=== PATIENT | male | born 1970 | race Caucasian/White ===

== ENCOUNTER 2016-11-13 14:11 | Inpatient (IN) | payer BC ==
[~2016-11-13] VITALS: Ht 182.9 cm; Wt 136.1 kg
[~2016-11-13 14:11] MED LIST: ALBU8.5H2 INH; ATOR20TA PO; BUDE10.2 INH; CODE118S2 PO; LEVO500T90 PO; MONT10TA25 PO; OMEP20TA20 PO; PRED2.5T PO; PRED20TA PO; SILD100T PO
[2016-11-13] MEDS ORDERED: LISI1TAB13 PO (14:43)
--- NOTE | 2016-11-13 15:15 | NUR ---
Patient is resting comfortably in bed with eyes closed, sleeping but easily arousable. Patient has obstructive sleep apnea and spo2 decreases to 77%@room air and spontaneously goes up to 97% room air during his sleep - Dr Hillman notified. Maintained on continuous cardiac, BP & spo2 monitors w/alarms set, on & audible.
[2016-11-13 15:29] LABS: CALCIUM 8.9 mg/dL (8.5-10.1); CREATININE 1.3 mg/dL (0.6-1.3); POTASSIUM 3.9 mmol/L (3.5-5.1)
[2016-11-13 15:41] LABS: ALBUMIN 3.5 g/dL (3.4-5.0); BILIRUBIN,DIRECT 0.1 mg/dL (0.0-0.2); BILIRUBIN,TOTAL 0.4 mg/dL (0.2-1.0); TOTAL PROTEIN, SERUM 6.7 g/dL (6.4-8.2)
[2016-11-13 15:43] LABS: BASOPHILS # (AUTO) 0.1 K/uL (0.0-0.2); BASOPHILS % (AUTO) 0.5 % (0.0-2.0); EOSINOPHILS # (AUTO) 1.2 K/uL (0.0-0.7); EOSINOPHILS % (AUTO) 6.8 % (0.0-7.0); HEMATOCRIT 40.4 % (40.0-50.0); HEMOGLOBIN 13.5 g/dL (14.0-18.0); LYMPHOCYTES # (AUTO) 3.1 K/uL (0.8-4.8); LYMPHOCYTES % (AUTO) 18.2 % (20.5-51.5); MEAN CORPUSCULAR HEMOGLOBIN 29.6 uug (27.0-31.0); MEAN CORPUSCULAR HGB CONC 34 g/dL (32.0-37.0); MEAN CORPUSCULAR VOLUME 88.4 fL (82.0-92.0); MONOCYTES # (AUTO) 1.7 K/uL (0.1-1.30); MONOCYTES % (AUTO) 9.7 % (0.0-11.0); NEUTROPHILS # (AUTO) 10.9 K/uL (1.8-8.9); NEUTROPHILS % (AUTO) 64.8 % (38.5-71.5); PLATELET COUNT (AUTO) 364 K/uL (150-450); RED BLOOD CELL COUNT(AUTO) 4.57 MIL/uL (4.70-6.10); RED CELL DISTRIBUTION WIDTH 14.7 % (11.5-14.5)
[2016-11-13 16:54] LABS: ETHANOL < 3 MG/DL (0-0)
--- NOTE | 2016-11-13 17:13 | NUR ---
still for urine specimen, endorsed to 2nd floor nurse Yaly accordingly. "OK to go to floor from CT scan." per Dr Hillman.
[2016-11-13] MEDS ORDERED: ONDANSETRON 4 MG/2 ML VIAL IV PRN (17:15)
[2016-11-13] MEDS ORDERED: ACETAMINOPHEN 325 MG TABLET PO PRN (17:15)
[2016-11-13] MEDS ORDERED: DEXTROSE 50% 50 ML DISP.SYRIN IV PRN (17:30)
--- NOTE | 2016-11-13 17:30 | NUR ---
ADMITTED FROM HOME VIA ER A 46 YO MALE WITH ADM DX OF SYNCOPE. ALERT AND ORIENTED X3, SLIGHT SOB ON EXERTION SATURATING 90% ON RA. STARTED O2 NC AT 2L SATURATING 98%. ROUTINE ADMISSION ASSESSMENT INITIATED. SEEN BY DR FLANAGAN WITH ORDERS
[2016-11-13] MEDS: IV 1/2NS 1000 ML 1,000 ML IV PRN (18:09)
[2016-11-13 18:47] VITALS: BP 147/105
[2016-11-13] MEDS: HYDROCODONE/APAP 5-325MG TABLET PO PRN (19:42)
[2016-11-13] MEDS: ATORVASTATIN 20 MG TABLET PO SCH (19:44)
[2016-11-13] MEDS: BLOOD SUGAR DIAGNOSTIC 1 EACH STRIP VI SCH (19:57)
--- NOTE | 2016-11-13 20:30 | NUR ---
Received this patient awake in bed, exertional SOB noted. Anxious c/o lower back pain. BP elevated. Sinus tachy on the monitor. [place] 1 tab po was given & monitored.
[2016-11-13 23:11] VITALS: BP 138/90
[2016-11-14] VITALS (7 sets, daily range): BP systolic 120–160; BP diastolic 74–103
[2016-11-14] MEDS: HYDROCODONE/APAP 5-325MG TABLET PO PRN ×3 (00:09→10:21)
[2016-11-14] MEDS ORDERED: LORAZEPAM 2 MG/1 ML VIAL IV PRN (00:30)
--- NOTE | 2016-11-14 00:30 | NUR ---
Patient still awake & anxious. C/o back discomfort. BP is higher this time w/ HR 116. Called Epic for orders. Received orders & carried. Ativan 1mg IVP adm. [place] 1tab po provided for pain & monitored.
[2016-11-14] MEDS ORDERED: CLONIDINE HCL 0.2 MG TABLET PO PRN (01:45)
[2016-11-14] MEDS ORDERED: CLONIDINE HCL 0.2 MG TABLET ONE (01:58)
--- NOTE | 2016-11-14 02:00 | NUR ---
Patient sleeping but BP remains high 160/92. Sinus tach [address] Henao notified. Clonidine 0.2 mg po adm.
[2016-11-14] MEDS: IV 1/2NS 1000 ML 1,000 ML IV PRN (06:25)
[2016-11-14] MEDS: PANTOPRAZOLE SODIUM 40 MG TABLET.DR PO SCH (06:36)
[2016-11-14] MEDS: BLOOD SUGAR DIAGNOSTIC 1 EACH STRIP VI SCH ×4 (06:36→20:43)
[2016-11-14 07:45] LABS: BASOPHILS % (AUTO) 0.2 % (0.0-2.0); EOSINOPHILS % (AUTO) 7.3 % (0.0-7.0); HEMOGLOBIN 13.6 g/dL (14.0-18.0); LYMPHOCYTES # (AUTO) 2.4 K/uL (0.8-4.8); LYMPHOCYTES % (AUTO) 16.5 % (20.5-51.5); MEAN CORPUSCULAR HEMOGLOBIN 30.1 uug (27.0-31.0); MEAN CORPUSCULAR HGB CONC 34 g/dL (32.0-37.0); MEAN CORPUSCULAR VOLUME 88.4 fL (82.0-92.0); MONOCYTES # (AUTO) 1.3 K/uL (0.1-1.30); MONOCYTES % (AUTO) 9.2 % (0.0-11.0); NEUTROPHILS # (AUTO) 9.6 K/uL (1.8-8.9); NEUTROPHILS % (AUTO) 66.8 % (38.5-71.5); PLATELET COUNT (AUTO) 364 K/uL (150-450); RED BLOOD CELL COUNT(AUTO) 4.53 MIL/uL (4.70-6.10); RED CELL DISTRIBUTION WIDTH 14.6 % (11.5-14.5); WHITE BLOOD COUNT (AUTO) 14.3 K/uL (4.0-11.2)
[2016-11-14 07:59] LABS: ALBUMIN 3.3 g/dL (3.4-5.0); BILIRUBIN,TOTAL 0.6 mg/dL (0.2-1.0); CALCIUM 8.5 mg/dL (8.5-10.1); POTASSIUM 3.7 mmol/L (3.5-5.1); TOTAL PROTEIN, SERUM 6.6 g/dL (6.4-8.2)
--- NOTE | 2016-11-14 08:00 | NUR ---
IN BED SLEEPING SLIGHTLY SHORT OF BREATH O2 SAT 90% RA
[2016-11-14 08:11] LABS: CREATININE 1.4 mg/dL (0.6-1.3)
[2016-11-14] MEDS ORDERED: HYDROCHLOROTHIAZIDE 25 MG TABLET PO SCH (09:00)
[2016-11-14] MEDS ORDERED: HCTZ PO SCH (09:00)
[2016-11-14] MEDS ORDERED: LISINOPRIL PO SCH (09:00)
[2016-11-14] MEDS ORDERED: LISINOPRIL 20 MG TABLET PO SCH (09:00)
[2016-11-14] MEDS ORDERED: POTASSIUM CHLORIDE 20 MEQ TAB.PRT.SR PO ONE (09:15)
[2016-11-14] MEDS: INSULIN REGULAR, HUMAN 300 UNIT/3 ML VIAL SQ PRN ×2 (11:38→20:44)
--- NOTE | 2016-11-14 12:00 | NUR ---
NO SIGNS OF PAIN UP AND ABOUT IN ROOM
--- NOTE | 2016-11-14 14:32 | NUR ---
SLEEPING ON AND OFF NO SIGNS OF DISTRESS ST ON MONITOR 110/MIN
--- NOTE | 2016-11-14 15:14 | NUR ---
seen by dr trevizo see notes
[2016-11-14] MEDS ORDERED: ALBUTEROL SULFATE 2.5 MG/3 ML NEBU NEB PRN (16:00)
--- NOTE | 2016-11-14 20:00 | NUR ---
RECEIVED PATIENT AWAKE IN BED. A/O X4. C/O PAIN IN LOWER BACK 04/10. VSS. [place] INTACT AND PATENT. NO RESP. DISTRESS NOTED. ON TELE ST 105-110. CALL LIGHT IN REACH. ALL NEEDS ATTENDED. WILL CONTINUE TO MONITOR.
[2016-11-14] MEDS: HYDROMORPHONE 1 MG/1 ML DISP.SYRIN IV PRN ×2 (20:01→20:17)
--- NOTE | 2016-11-14 20:15 | NUR ---
PATIENT GIVEN DILAUDID 1MG IV PER UTILITY ASSEMBLER.
[2016-11-14] MEDS: AMLODIPINE 5 MG TABLET PO SCH (20:49)
[2016-11-14] MEDS: ATORVASTATIN 20 MG TABLET PO SCH (20:49)
[2016-11-15 00:06] VITALS: BP 115/83
[2016-11-15] MEDS: HYDROMORPHONE 1 MG/1 ML DISP.SYRIN IV PRN ×5 (00:48→20:30)
[2016-11-15 04:00] VITALS: BP 121/86
[2016-11-15] MEDS: PANTOPRAZOLE SODIUM 40 MG TABLET.DR PO SCH (06:04)
--- NOTE | 2016-11-15 06:10 | NUR ---
PATIENT DOZING ON AND OFF IN BED. EASILY AROUSABLE. DENIES PAIN OR DISCOMFORT. NO RESP. DISTRESS NOTED. SLEPT WELL. VSS. CALL LIGHT IN REACH. ALL NEEDS ATTENDED. WILL CONTINUE TO MONITOR.
[2016-11-15] MEDS: BLOOD SUGAR DIAGNOSTIC 1 EACH STRIP VI SCH ×4 (06:45→20:17)
[2016-11-15 07:13] LABS: BASOPHILS # (AUTO) 0.1 K/uL (0.0-0.2); BASOPHILS % (AUTO) 0.7 % (0.0-2.0); EOSINOPHILS # (AUTO) 0.7 K/uL (0.0-0.7); HEMATOCRIT 43.5 % (40.0-50.0); HEMOGLOBIN 13.7 g/dL (14.0-18.0); LYMPHOCYTES % (AUTO) 23.7 % (20.5-51.5); MEAN CORPUSCULAR HEMOGLOBIN 28.4 uug (27.0-31.0); MEAN CORPUSCULAR HGB CONC 32 g/dL (32.0-37.0); MONOCYTES # (AUTO) 1.4 K/uL (0.1-1.30); MONOCYTES % (AUTO) 11.1 % (0.0-11.0); NEUTROPHILS # (AUTO) 7.3 K/uL (1.8-8.9); NEUTROPHILS % (AUTO) 58.5 % (38.5-71.5); PLATELET COUNT (AUTO) 391 K/uL (150-450); RED BLOOD CELL COUNT(AUTO) 4.83 MIL/uL (4.70-6.10); RED CELL DISTRIBUTION WIDTH 14.9 % (11.5-14.5); WHITE BLOOD COUNT (AUTO) 12.5 K/uL (4.0-11.2)
[2016-11-15] MEDS: AMLODIPINE 5 MG TABLET PO SCH ×2 (08:01→20:21)
[2016-11-15 08:15] LABS: ALBUMIN 3.4 g/dL (3.4-5.0); BILIRUBIN,TOTAL 0.5 mg/dL (0.2-1.0); CALCIUM 8.8 mg/dL (8.5-10.1); PHOSPHOROUS 4.2 mg/dL (2.5-4.9); POTASSIUM 3.7 mmol/L (3.5-5.1); TOTAL PROTEIN, SERUM 7.2 g/dL (6.4-8.2)
[2016-11-15 08:16] LABS: CREATININE 1.5 mg/dL (0.6-1.3)
[2016-11-15 10:44] LABS: EOSINOPHILS % (MANUAL) 5 % (0-8); LYMPHOCYTES % (MANUAL) 19 % (20-40); MONOCYTES % (MANUAL) 9 % (2-10); NEUTROPHILS % (MANUAL) 67 % (42-75)
[2016-11-15 10:45] LABS: PLATELET ESTIMATE ADEQUATE
[2016-11-15] MEDS: POTASSIUM CHLORIDE 20 MEQ in IV 1/2NS 1000 ML 1,000 ML IV PRN (11:48)
[2016-11-15 12:00] VITALS: BP 110/60
[2016-11-15 16:00] VITALS: BP 108/60
[2016-11-15] MEDS: INSULIN REGULAR, HUMAN 300 UNIT/3 ML VIAL SQ PRN ×2 (17:05→20:18)
--- NOTE | 2016-11-15 17:47 | NUR ---
PATIENT BEEN AWAKE WATCHING TV. NO S/S OF DISTRESS NOTED. C/O OF DURING THE DAY, MEDICATED ORDERED. BS CONTROLLED. TALKED TO THE TODAY, SHE STATED THAT SHE DOES NOT WANT HER TO GO BACK HOME CAUSE SHE AFRAID OF HIM, SAYING THAT HE IS VERY ABUSIVE. REQUESTED TO TALK TO MD IMMEDIATELY. DR. RANGEL AND MAU SW AWARE OF THE SITUATION. IV STILL INTACT. FLUIDS ARE RUNNING. SAFETY AND COMFORT PROVIDED. WILL CONTINUE MONITORING.
[2016-11-15 20:00] VITALS: BP 139/78
--- NOTE | 2016-11-15 20:00 | NUR ---
RECEIVED PATIENT AWAKE IN BED WITH AND SON AT BEDSIDE. PATIENT IS A/O X4. C/O PAIN IN LOWER BACK 05/11. ALL OTHER VSS. IV INFUSING WELL TO LEFT FA #20 GAUGE. NO RESP. DISTRESS NOTED. CALL LIGHT IN REACH. ALL NEEDS ATTENDED. WILL CONTINUE TO MONITOR.
[2016-11-15] MEDS: ATORVASTATIN 20 MG TABLET PO SCH (20:21)
--- NOTE | 2016-11-15 20:30 | NUR ---
PATIENT GIVEN DILAUDID 1MG IV PER RN. WILL CONTINUE TO MONITOR.
--- NOTE | 2016-11-15 21:20 | NUR ---
DR. KAUR AT BEDSIDE TO ASSESS PATIENT. TELEMETRY DISCONTINUED. ALL NEEDS ATTENDED.
[2016-11-16] MEDS: HYDROMORPHONE 1 MG/1 ML DISP.SYRIN IV PRN ×3 (02:04→09:58)
[2016-11-16] MEDS: POTASSIUM CHLORIDE 20 MEQ in IV 1/2NS 1000 ML 1,000 ML IV PRN (02:04)
[2016-11-16 06:16] LABS: BASOPHILS # (AUTO) 0.1 K/uL (0.0-0.2); BASOPHILS % (AUTO) 0.8 % (0.0-2.0); EOSINOPHILS # (AUTO) 0.6 K/uL (0.0-0.7); EOSINOPHILS % (AUTO) 5.1 % (0.0-7.0); HEMATOCRIT 42.5 % (40.0-50.0); HEMOGLOBIN 13.5 g/dL (14.0-18.0); LYMPHOCYTES # (AUTO) 2.9 K/uL (0.8-4.8); LYMPHOCYTES % (AUTO) 25.6 % (20.5-51.5); MEAN CORPUSCULAR HEMOGLOBIN 28.5 uug (27.0-31.0); MEAN CORPUSCULAR HGB CONC 32 g/dL (32.0-37.0); MEAN CORPUSCULAR VOLUME 89.5 fL (82.0-92.0); MONOCYTES # (AUTO) 1.5 K/uL (0.1-1.30); MONOCYTES % (AUTO) 13.3 % (0.0-11.0); NEUTROPHILS % (AUTO) 55.2 % (38.5-71.5); PLATELET COUNT (AUTO) 412 K/uL (150-450); RED BLOOD CELL COUNT(AUTO) 4.75 MIL/uL (4.70-6.10); RED CELL DISTRIBUTION WIDTH 14.7 % (11.5-14.5); WHITE BLOOD COUNT (AUTO) 11.1 K/uL (4.0-11.2)
[2016-11-16] MEDS: PANTOPRAZOLE SODIUM 40 MG TABLET.DR PO SCH (06:32)
[2016-11-16] MEDS: BLOOD SUGAR DIAGNOSTIC 1 EACH STRIP VI SCH ×2 (06:38→12:06)
--- NOTE | 2016-11-16 06:40 | NUR ---
PATIENT AWAKE IN BED. C/O PAIN. GIVEN DILAUDID 1MG IV PRN PER RN. VSS. IVF INFUSING WELL. CALL LIGHT IN REACH. ALL NEEDS ATTENDED, WILL CONTINUE TO MONITOR.
[2016-11-16 06:54] VITALS: BP 139/93
[2016-11-16 07:14] LABS: ALBUMIN 3.3 g/dL (3.4-5.0); BILIRUBIN,TOTAL 0.4 mg/dL (0.2-1.0); CREATININE 1.3 mg/dL (0.6-1.3); MAGNESIUM 2.1 mg/dL (1.8-2.4); PHOSPHOROUS 4.3 mg/dL (2.5-4.9); TOTAL PROTEIN, SERUM 7.2 g/dL (6.4-8.2)
[2016-11-16] MEDS: INSULIN REGULAR, HUMAN 300 UNIT/3 ML VIAL SQ PRN (08:00)
[2016-11-16 09:07] LABS: EOSINOPHILS % (MANUAL) 5 % (0-8); LYMPHOCYTES % (MANUAL) 29 % (20-40); MONOCYTES % (MANUAL) 12 % (2-10); NEUTROPHILS % (MANUAL) 54 % (42-75)
[2016-11-16 09:08] LABS: PLATELET ESTIMATE ADEQUATE
[2016-11-16] MEDS: AMLODIPINE 5 MG TABLET PO SCH (09:18)
--- NOTE | 2016-11-16 10:54 | NUR ---
Discharge: Once patient is medically cleared patient will be discharged back home [[id number] [place] [address]]. Pt will be transported via private car.
[2016-11-16 11:42] VITALS: BP 127/82
--- NOTE | 2016-11-16 15:10 | NUR ---
PATIENT BEEN DISCHARGE HOME IN SAFE AND STABLE CONDITION. NO S/S OF DISTRESS NOTED. C/O OF PAIN DURING MORNING, MEDICATED ORDERED. DISCHARGE INSTRUCTIONS WERE EXPLAINED, SIGNED BY PATIENT. A COPY WAS PROVIDED. DC PHOTOS WERE TAKEN AND PLACED IN THE CHART. BELONGINGS WERE TAKEN. ID BAND AND IV REMOVED. SON SUPPOSED TO PICK HIM UP. I ASKED PATIENT TO PLEASE LET ME KNOW WHEN HE LEAVES, BUT LEFT WITHOUT NOTIFICATION. DURING HIS HOSPITALIZATION, SAFETY AND COMFORT WAS PROVIDED, AND ALL NEEDS WERE MET BY STAFF.
== END 2016-11-16 14:50 | disposition home or self-care (01) | DRG 73 ==
LOC: ER 14:11 → MED 17:07 → TELE 17:29 → MED 11-15 21:23
PROVIDERS: ADMIT Internal Medicine; ATTEND Internal Medicine
DX: G90.8 Other disorders of autonomic nervous system (principal); N17.0 Acute kidney failure with tubular necrosis; Z68.41 Body mass index [BMI] 40.0-44.9, adult; E86.0 Dehydration; G47.33 Obstructive sleep apnea (adult) (pediatric); E66.9 Obesity, unspecified; E78.5 Hyperlipidemia, unspecified; Z82.49 Family history of ischemic heart disease and other diseases of the circulatory system; J45.909 Unspecified asthma, uncomplicated; Z98.890 Other specified postprocedural states; S21.209A Unspecified open wound of unspecified back wall of thorax without penetration into thoracic cavity, initial encounter; S51.002A Unspecified open wound of left elbow, initial encounter; S51.001A Unspecified open wound of right elbow, initial encounter; S81.002A Unspecified open wound, left knee, initial encounter; S81.001A Unspecified open wound, right knee, initial encounter; W13.8XXA Fall from, out of or through other building or structure, initial encounter; Y92.89 Other specified places as the place of occurrence of the external cause; F41.9 Anxiety disorder, unspecified; E11.9 Type 2 diabetes mellitus without complications; Z79.899 Other long term (current) drug therapy; Z83.3 Family history of diabetes mellitus; R29.6 Repeated falls; I70.0 Atherosclerosis of aorta; D72.828 Other elevated white blood cell count; I10 Essential (primary) hypertension; M79.89 Other specified soft tissue disorders; R00.0 Tachycardia, unspecified
CPT/HCPCS: 36415; 70030-TC; 70450; 71010; 73130; 73630; 83735; 84100; 84443; 85025; 85730; 93005; A4663; G6040-TC; J1170; J1815; J2060; J3480; J3490

== ENCOUNTER 2018-08-11 10:52 | Inpatient (IN) | payer BC, OTHER ==
[~2018-08-11] VITALS: Ht 182.9 cm; Wt 139.7 kg
[~2018-08-11 10:52] MED LIST changes: -ALBU8.5H2 INH; +ALBU8.5H8 INH; -CODE118S2 PO; -LEVO500T90 PO; +LISI1TAB13 PO; -MONT10TA25 PO; -PRED2.5T PO; -PRED20TA PO
[2018-08-11] MEDS ORDERED: IPRATROPIUM BROMIDE 0.5 MG/2.5 ML NEBU ONE ×2 (11:14→12:18)
[2018-08-11] MEDS ORDERED: ALBUTEROL SULFATE 2.5 MG/3 ML NEBU ONE ×2 (11:14→12:18)
[2018-08-11] MEDS ORDERED: ALBUTEROL SULFATE 2.5 MG/3 ML NEBU NEB ONE ×2 (11:15→12:15)
[2018-08-11] MEDS ORDERED: IPRATROPIUM BROMIDE 0.5 MG/2.5 ML NEBU NEB ONE ×2 (11:15→12:15)
[2018-08-11 11:29] LABS: BASOPHILS # (AUTO) 0.1 K/uL (0.0-8.0); BASOPHILS % (AUTO) 0.7 % (0.0-2.0); EOSINOPHILS # (AUTO) 0.9 K/uL (0.0-0.7); EOSINOPHILS % (AUTO) 6.6 % (0.0-7.0); HEMATOCRIT 40.6 % (36.7-47.1); HEMOGLOBIN 13.8 g/dL (12.5-16.3); LYMPHOCYTES # (AUTO) 1.9 K/uL (20.0-40.0); LYMPHOCYTES % (AUTO) 13.6 % (20.5-51.5); MEAN CORPUSCULAR HEMOGLOBIN 31.3 uug (23.8-33.4); MEAN CORPUSCULAR HGB CONC 34 g/dL (32.5-36.3); MEAN CORPUSCULAR VOLUME 92.4 fL (73.0-96.2); MONOCYTES # (AUTO) 1.2 K/uL (2.0-10.0); NEUTROPHILS # (AUTO) 9.7 K/uL (1.8-8.9); NEUTROPHILS % (AUTO) 70.1 % (38.5-71.5); PLATELET COUNT (AUTO) 297 K/uL (152-348); WHITE BLOOD COUNT (AUTO) 13.8 K/uL (3.6-10.2)
[2018-08-11 11:34] LABS: CREATININE 1.3 mg/dL (0.6-1.3)
[2018-08-11 11:51] LABS: BILIRUBIN,DIRECT 0.1 mg/dL (0.0-0.2); BILIRUBIN,TOTAL 0.3 mg/dL (0.2-1.0); TOTAL PROTEIN, SERUM 7.1 g/dL (6.4-8.2)
[2018-08-11] MEDS ORDERED: methylPREDNISolone SOD SUCC 125 MG/2 ML VIAL ONE (12:09)
[2018-08-11] MEDS ORDERED: CEFTRIAXONE 1 G VIAL ONE (12:09)
[2018-08-11] MEDS ORDERED: AZITHROMYCIN IV 500 MG in IV DEXTROSE 5% 250 ML IV ONE (12:15)
[2018-08-11] MEDS ORDERED: methylPREDNISolone SOD SUCC 125 MG/2 ML VIAL IV ONE (12:15)
[2018-08-11] MEDS ORDERED: CEFTRIAXONE 1 G in IV DEXTROSE 5% 50 ML IV ONE (12:15)
[2018-08-11] MEDS ORDERED: LORAZEPAM 0.5 MG TABLET ONE (12:22)
[2018-08-11] MEDS ORDERED: LORAZEPAM 0.5 MG TABLET PO ONE (12:45)
[2018-08-11] MEDS ORDERED: MAGNESIUM HYDROXIDE 30 ML LIQUID UDC PO PRN (13:45)
[2018-08-11] MEDS ORDERED: HYDROCODONE/APAP 5-325MG TABLET PO PRN (13:45)
[2018-08-11] MEDS ORDERED: ACETAMINOPHEN 325 MG TABLET PO PRN (13:45)
[2018-08-11] MEDS ORDERED: ONDANSETRON 4 MG/2 ML VIAL IV PRN (13:45)
--- NOTE | 2018-08-11 13:47 | NUR ---
transferred to room 216 tele bed via wheelchair.
--- NOTE | 2018-08-11 13:50 | NUR ---
RECEIVED PATIENT FROM ED 47 YEARS OLD MALE BY W/CHAIR TO ROOM 216 PLACED INTO BED FIXED AND MADE COMFORTABLE PATIENT IS ALERT AND ORIENTED NO S/S OF PAIN OR DISCOMFORTS AT THIS TIME BUT HAVING SOB UPON EXERSION O2 IN PROGRESS WITH SATS AT 67-97%. ORIENTED TO ROOM AND HOSPITAL PROTOCOL TELEMETRY APPLIED ORDERED AND ITS ST AT THIS TIME HE HAS ZITHROMAX INFUSSING FROM THE ED TO HIS LEFT HAND WITH SITE INTACT WITH NO S/S OF INFILTERATION AT THIS TIME.MADE COMFORTABLE AND WILL CONTINUE TO OBSERVE.
[2018-08-11 14:00] VITALS: BP 126/68
[2018-08-11] MEDS ORDERED: MORPHINE SULFATE 2 MG/1 ML DISP.SYRIN IV PRN (15:15)
[2018-08-11] MEDS ORDERED: MORPHINE SULFATE 4 MG/1 ML DISP.SYRIN IV PRN (15:45)
--- NOTE | 2018-08-11 16:33 | NUR ---
DR FLANAGAN HERE TO SEE PATIENT WITH NEW ORDERS AND NOTED CASE MANAGEMENT SPECIALIST HERE AT THIS TIME.
[2018-08-11] MEDS: GUAIFENESIN/CODEINE 5 ML LIQUID UDC PO PRN (16:52)
--- NOTE | 2018-08-11 16:52 | NUR ---
COUGHING DRY WITH NO SPUTUM MEDICATED WITH ROBITUSSIN AC ORDERED AND WILL CONTINUE TO OBSERVE.
[2018-08-11] MEDS: MORPHINE SULFATE 4 MG/1 ML DISP.SYRIN IV PRN ×2 (18:53→23:15)
[2018-08-11 19:00] VITALS: BP 135/68
--- NOTE | 2018-08-11 19:00 | NUR ---
COUGHING PROFUSELY DESPITE COUGH MEDICATIONS STATED HAVING PAIN FROM THE COUGHING MEDICATED WITH MORPHINE ORDERED AND WILL OBSERVE BROUGHT IN HIS CPAP FROM HOME.
[2018-08-11] MEDS: ALBUTEROL SULFATE 2.5 MG/3 ML NEBU NEB PRN (19:07)
--- NOTE | 2018-08-11 19:39 | NUR ---
PATIENT IS AWAKE IN BED, AAOX4. PAIN MEDS GIVEN PRIOR TO START OF SHIFT. NO S/S OF PAIN OR DISTRESS ON ASSESSMENT. SAFETY MEASURES IN PLACE, WILL CONTINUE TO MONITOR PATIENT
[2018-08-12] VITALS: BP 137/73
[2018-08-12] MEDS: GUAIFENESIN/CODEINE 5 ML LIQUID UDC PO PRN ×4 (00:29→22:30)
--- NOTE | 2018-08-12 03:02 | NUR ---
Received report from BOSTON BENJAMIN. Pt resting in bed, shows no s/s of acute distress. Safety precautions maintained at all times. Will continue to monitor.
[2018-08-12 04:00] VITALS: BP 109/70
[2018-08-12] MEDS: PANTOPRAZOLE SODIUM 40 MG TABLET.DR PO SCH (06:12)
[2018-08-12] MEDS: MORPHINE SULFATE 4 MG/1 ML DISP.SYRIN IV PRN ×4 (06:14→20:40)
[2018-08-12 06:20] LABS: BASOPHILS # (AUTO) 0.1 K/uL (0.0-8.0); BASOPHILS % (AUTO) 0.3 % (0.0-2.0); HEMATOCRIT 39.5 % (36.7-47.1); LYMPHOCYTES # (AUTO) 1.2 K/uL (20.0-40.0); MEAN CORPUSCULAR HEMOGLOBIN 30.8 uug (23.8-33.4); MEAN CORPUSCULAR HGB CONC 33 g/dL (32.5-36.3); MEAN CORPUSCULAR VOLUME 93.8 fL (73.0-96.2); MONOCYTES # (AUTO) 0.9 K/uL (2.0-10.0); MONOCYTES % (AUTO) 4.7 % (0.0-11.0); NEUTROPHILS # (AUTO) 17.3 K/uL (1.8-8.9); PLATELET COUNT (AUTO) 318 K/uL (152-348); RED BLOOD CELL COUNT(AUTO) 4.21 MIL/uL (4.06-5.63); WHITE BLOOD COUNT (AUTO) 19.5 K/uL (3.6-10.2)
[2018-08-12 06:33] LABS: BILIRUBIN,TOTAL 0.3 mg/dL (0.2-1.0); CREATININE 1.5 mg/dL (0.6-1.3); MAGNESIUM 1.7 mg/dL (1.8-2.4); PHOSPHOROUS 3.1 mg/dL (2.5-4.9); POTASSIUM 4.5 mmol/L (3.5-5.1); TOTAL PROTEIN, SERUM 6.9 g/dL (6.4-8.2)
[2018-08-12 06:34] LABS: THYROID STIMULATING HORMONE 1.709 mIU/mL (0.358-3.740)
--- NOTE | 2018-08-12 06:35 | NUR ---
No significant changes t/o the night. Pain med given x1 with effect. Pt shows no signs of acute distress at this time. Comfort measures in place. Will endorse continuity of care to day shift nurse.
--- NOTE | 2018-08-12 06:45 | NUR ---
CRITICAL LAB VALUE GLUCOSE 347. MD NOTIFIED. AWAITING ORDERS
[2018-08-12] MEDS ORDERED: DEXTROSE 50% 50 ML DISP.SYRIN IV PRN (07:00)
--- NOTE | 2018-08-12 07:00 | NUR ---
LEWIS SEPULVEDA order of sliding scale. Pt shows no s/s of acute distress at this time. Will endorse accordingly to day shift nurse.
[2018-08-12] MEDS: BLOOD SUGAR DIAGNOSTIC 1 EACH STRIP VI SCH ×4 (07:34→20:39)
[2018-08-12 08:00] VITALS: BP 123/71
[2018-08-12] MEDS: HYDROCHLOROTHIAZIDE 25 MG TABLET PO SCH (08:14)
[2018-08-12] MEDS: LISINOPRIL 20 MG TABLET PO SCH (08:14)
[2018-08-12] MEDS: FLUTICASONE/VILANTEROL 1 EACH BLST.W.DEV INH SCH (08:14)
[2018-08-12] MEDS ORDERED: HCTZ PO SCH (09:00)
[2018-08-12] MEDS ORDERED: LISINOPRIL PO SCH (09:00)
--- NOTE | 2018-08-12 09:55 | NUR ---
A request for breathing tx by pt. at this time. RT Sina notified.
[2018-08-12 09:58] LABS: *BILIRUBIN,URIN NEGATIVE (NEGATIVE); *BLOOD, URINE NEGATIVE (NEGATIVE); *CLARITY,URINE CLEAR (CLEAR); *COLOR,URINE YELLOW (YELLOW); *KETONES,URINE NEGATIVE (NEGATIVE); *UROBILINOGEN,URINE 0.2 E.U./dl (NORMAL); LEUKOCYTE ESTERASE ,URINE NEGATIVE (NEGATIVE); NITRITE, URINE NEGATIVE (NEGATIVE); UGLUCOSE 1+ (NEGATIVE)
[2018-08-12] MEDS: ALBUTEROL SULFATE 2.5 MG/3 ML NEBU NEB PRN (09:58)
[2018-08-12 10:14] LABS: *CREATININE,URINE 61.6 mg/dL (30-125); *URINE TOTAL PROTEIN RANDOM 10.6 mg/dL (<150/24HR)
[2018-08-12 10:28] LABS: BACTERIA,URINE FEW /HPF (NONE SEEN); RBC,URINE NONE SEEN /HPF (0-3); SQUAMOUS EPITHELIAL CELL,UR FEW /HPF (NONE SEEN); WBC,URINE 0-3 /HPF (0-3)
[2018-08-12 11:06] VITALS: BP 137/77
--- NOTE | 2018-08-12 11:40 | NUR ---
Patient care relinquish to Guicho Dougherty. Addendum: 08/12/18 at 1200 by KELLY CARDONA RN All system covered during report.
[2018-08-12] MEDS: CEFTRIAXONE 1 G in IV DEXTROSE 5% 50 ML IV SCH (11:54)
--- NOTE | 2018-08-12 12:00 | NUR ---
pt blood sugar is 255 pt refused the insulin md made aware,
[2018-08-12] MEDS: AZITHROMYCIN IV 500 MG in IV DEXTROSE 5% 250 ML IV SCH (12:37)
[2018-08-12] MEDS ORDERED: MAGNESIUM OXIDE 400 MG TABLET PO ONE (13:15)
[2018-08-12 15:05] VITALS: BP 140/72
--- NOTE | 2018-08-12 16:58 | NUR ---
PT BLOOD SUGAR IS 364 ,PT REFUSING THE SLIDING SCALE INSULIN, MADE AWARE, EDUCATION PROVIDED TO THE PT ,PT STILL REFUSING
--- NOTE | 2018-08-12 19:20 | NUR ---
RECEIVED PT AWAKE, ALERT, ORIENTEDX4. PT SHOWS NO SIGNS OF DISTRESS.FAMILY MEMBER AT BEDSIDE. IV INTACT AND PATENT.CALL LIGHT WITHIN REACH. SAFETY AND COMFORT PROVIDED. WILL CONTINUE TO MONITOR.
[2018-08-12 20:00] VITALS: BP 143/81
[2018-08-12] MEDS: CULTURELLE CAPSULE PO SCH (20:38)
[2018-08-12] MEDS: methylPREDNISolone SOD SUCC 40 MG/ML VIAL IV SCH (22:30)
[2018-08-12] MEDS: INSULIN REGULAR, HUMAN 300 UNIT/3 ML VIAL SQ PRN (23:19)
[2018-08-13] MEDS: MORPHINE SULFATE 4 MG/1 ML DISP.SYRIN IV PRN ×6 (00:55→23:13)
[2018-08-13 04:00] VITALS: BP 144/66
[2018-08-13] MEDS: methylPREDNISolone SOD SUCC 40 MG/ML VIAL IV SCH ×3 (05:08→21:47)
[2018-08-13] MEDS: PANTOPRAZOLE SODIUM 40 MG TABLET.DR PO SCH (06:05)
[2018-08-13] MEDS: BLOOD SUGAR DIAGNOSTIC 1 EACH STRIP VI SCH ×4 (06:30→20:23)
--- NOTE | 2018-08-13 06:33 | NUR ---
PT SLEPT THROUGHOUT THE SHIFT. PT SHOWS NO SIGNS OF DISTRESS. PRESCRIBED MEDICATION GIVEN AND PT TOLERATED IT WELL. PAIN MEDICATION GIVEN DOCTOR PRESCRIBED. PT TOLERATED IT WELL. SAFETY AND COMFORT PROVIDED. ALL NEEDS ARE MET. WILL ENDORSE TO INCOMING NURSE FOR CONTINUITY OF CARE.
[2018-08-13 07:11] LABS: BASOPHILS # (AUTO) 0.1 K/uL (0.0-8.0); BASOPHILS % (AUTO) 0.3 % (0.0-2.0); EOSINOPHILS % (AUTO) 0.1 % (0.0-7.0); HEMOGLOBIN 13.7 g/dL (12.5-16.3); LYMPHOCYTES # (AUTO) 1.3 K/uL (20.0-40.0); LYMPHOCYTES % (AUTO) 7.3 % (20.5-51.5); MEAN CORPUSCULAR HEMOGLOBIN 31.1 uug (23.8-33.4); MEAN CORPUSCULAR HGB CONC 34 g/dL (32.5-36.3); MONOCYTES # (AUTO) 0.5 K/uL (2.0-10.0); MONOCYTES % (AUTO) 2.9 % (0.0-11.0); NEUTROPHILS # (AUTO) 16.4 K/uL (1.8-8.9); NEUTROPHILS % (AUTO) 89.4 % (38.5-71.5); PLATELET COUNT (AUTO) 353 K/uL (152-348); RED BLOOD CELL COUNT(AUTO) 4.41 MIL/uL (4.06-5.63); WHITE BLOOD COUNT (AUTO) 18.3 K/uL (3.6-10.2)
[2018-08-13] MEDS: INSULIN REGULAR, HUMAN 300 UNIT/3 ML VIAL SQ PRN ×4 (07:27→20:25)
[2018-08-13 07:34] LABS: BILIRUBIN,TOTAL 0.2 mg/dL (0.2-1.0); CREATININE 1.3 mg/dL (0.6-1.3); PHOSPHOROUS 3.8 mg/dL (2.5-4.9); POTASSIUM 4.8 mmol/L (3.5-5.1); TOTAL PROTEIN, SERUM 7.1 g/dL (6.4-8.2)
[2018-08-13] MEDS: HYDROCHLOROTHIAZIDE 25 MG TABLET PO SCH (08:04)
[2018-08-13] MEDS: CULTURELLE CAPSULE PO SCH ×2 (08:04→20:26)
[2018-08-13] MEDS: FLUTICASONE/VILANTEROL 1 EACH BLST.W.DEV INH SCH (08:05)
[2018-08-13] MEDS: LISINOPRIL 20 MG TABLET PO SCH (08:05)
[2018-08-13] MEDS: GUAIFENESIN/CODEINE 5 ML LIQUID UDC PO PRN ×2 (10:07→17:56)
[2018-08-13 11:15] VITALS: BP 137/78
[2018-08-13] MEDS: CEFTRIAXONE 1 G in IV DEXTROSE 5% 50 ML IV SCH (11:15)
[2018-08-13] MEDS: AZITHROMYCIN IV 500 MG in IV DEXTROSE 5% 250 ML IV SCH (12:03)
[2018-08-13 15:35] VITALS: BP 147/75
[2018-08-13] MEDS: ALBUTEROL SULFATE 2.5 MG/3 ML NEBU NEB PRN (16:21)
--- NOTE | 2018-08-13 19:35 | NUR ---
Received pt awake, alert and oriented x4. Discussed and reviewed plan of care with pt, pt cooperative with care. Pt complains of pain in abdominal area 9/10 at this time. Pt shows no signs of distress. Denies SOB, productive cough, or severe headache. Safety precautions implemented. Bed on low locked position. Call light within reach. Will continue to monitor.
--- NOTE | 2018-08-13 20:30 | NUR ---
Pt BG 484. DR. PANCHITO MD notified. Order of 10 extra units with sliding scale protocol 10 units.
[2018-08-13] MEDS ORDERED: INSULIN REGULAR, HUMAN 300 UNIT/3 ML VIAL SQ ONE (21:15)
--- NOTE | 2018-08-13 21:30 | NUR ---
Pt recheck of BG 443 after one hour. Pt shows no s/s of acute distress. Will continue to monitor.
[2018-08-13 21:44] VITALS: BP 147/73
[2018-08-14] MEDS: MORPHINE SULFATE 4 MG/1 ML DISP.SYRIN IV PRN ×5 (05:10→22:12)
[2018-08-14 05:16] VITALS: BP 111/74
[2018-08-14 05:59] LABS: BASOPHILS # (AUTO) 0.1 K/uL (0.0-8.0); BASOPHILS % (AUTO) 0.5 % (0.0-2.0); HEMATOCRIT 42.8 % (36.7-47.1); HEMOGLOBIN 14.3 g/dL (12.5-16.3); LYMPHOCYTES # (AUTO) 2.2 K/uL (20.0-40.0); LYMPHOCYTES % (AUTO) 8.2 % (20.5-51.5); MEAN CORPUSCULAR HGB CONC 33 g/dL (32.5-36.3); MEAN CORPUSCULAR VOLUME 92.9 fL (73.0-96.2); MONOCYTES # (AUTO) 1.1 K/uL (2.0-10.0); MONOCYTES % (AUTO) 4.2 % (0.0-11.0); NEUTROPHILS # (AUTO) 23.8 K/uL (1.8-8.9); NEUTROPHILS % (AUTO) 87.1 % (38.5-71.5); PLATELET COUNT (AUTO) 401 K/uL (152-348); WHITE BLOOD COUNT (AUTO) 27.3 K/uL (3.6-10.2)
[2018-08-14] MEDS: PANTOPRAZOLE SODIUM 40 MG TABLET.DR PO SCH (06:10)
[2018-08-14] MEDS: BLOOD SUGAR DIAGNOSTIC 1 EACH STRIP VI SCH ×4 (06:10→21:15)
[2018-08-14 06:15] LABS: CREATININE 1.5 mg/dL (0.6-1.3); MAGNESIUM 2.4 mg/dL (1.8-2.4); POTASSIUM 3.9 mmol/L (3.5-5.1)
[2018-08-14 06:28] LABS: LYMPHOCYTES % (MANUAL) 9 % (20-40); MONOCYTES % (MANUAL) 2 % (2-10); NEUTROPHILS % (MANUAL) 89 % (42-75)
--- NOTE | 2018-08-14 06:30 | NUR ---
Pt slept well t/o the night. Easily arousable during initial rounds. Pain med given x3 with effect. Denies SOB, productive cough and severe fatigue at this time. BG 286. Pt shows no signs of acute distress. Safety precautions maintained, call light within reach. Will endorse continuity of care to day shift nurse.
[2018-08-14 08:06] LABS: ALBUMIN 3.2 g/dL (2.9-4.4); ALPHA-1-GLOBULIN 0.2 g/dL (0.0-0.4); ALPHA-2-GLOBULIN 0.9 g/dL (0.4-1.0); BETA GLOBULIN 1.1 g/dL (0.7-1.3); GAMMA GLOBULIN 0.8 g/dL (0.4-1.8); GLOBULIN, TOTAL 3.1 g/dL (2.2-3.9); M-SPIKE Not Observed g/dL (Not Observed)
[2018-08-14] MEDS: LISINOPRIL 20 MG TABLET PO SCH (09:09)
[2018-08-14] MEDS: CULTURELLE CAPSULE PO SCH ×2 (09:09→21:13)
[2018-08-14] MEDS: HYDROCHLOROTHIAZIDE 25 MG TABLET PO SCH (09:09)
[2018-08-14] MEDS: FLUTICASONE/VILANTEROL 1 EACH BLST.W.DEV INH SCH (09:10)
[2018-08-14] MEDS: methylPREDNISolone SOD SUCC 40 MG/ML VIAL IV SCH ×2 (09:10→21:13)
[2018-08-14] MEDS: INSULIN REGULAR, HUMAN 300 UNIT/3 ML VIAL SQ PRN ×4 (09:16→21:21)
[2018-08-14] MEDS ORDERED: ACIDOPHILUS/BULGARICUS CHEW TAB PO SCH (10:30)
[2018-08-14 11:39] VITALS: BP 126/84
[2018-08-14] MEDS: CEFTRIAXONE 1 G in IV DEXTROSE 5% 50 ML IV SCH (11:56)
[2018-08-14] MEDS: AZITHROMYCIN IV 500 MG in IV DEXTROSE 5% 250 ML IV SCH (12:54)
[2018-08-14 15:53] VITALS: BP 132/74
[2018-08-14] MEDS: GUAIFENESIN/CODEINE 5 ML LIQUID UDC PO PRN (17:03)
--- NOTE | 2018-08-14 18:17 | NUR ---
Pt is observed resting in bed with at the bedside. Pt shows no signs of respiratory distress. New IV on the right forearm 20 gauge patent and intact. Last IV infiltrated and was removed. Pt's abdominal pain is controlled with morphine and repositioning. blood sugar controlled with insulin. Last blood sugar 203 and was covered with 4units of insulin. Continue to monitor pt.
[2018-08-14 19:32] VITALS: BP 161/98
[2018-08-15 03:33] VITALS: BP 126/83
[2018-08-15] MEDS: PANTOPRAZOLE SODIUM 40 MG TABLET.DR PO SCH (06:05)
[2018-08-15] MEDS: MORPHINE SULFATE 4 MG/1 ML DISP.SYRIN IV PRN ×2 (06:05→10:27)
[2018-08-15 06:07] LABS: BASOPHILS # (AUTO) 0.1 K/uL (0.0-8.0); BASOPHILS % (AUTO) 0.6 % (0.0-2.0); HEMATOCRIT 41.9 % (36.7-47.1); HEMOGLOBIN 14.3 g/dL (12.5-16.3); LYMPHOCYTES # (AUTO) 2.1 K/uL (20.0-40.0); LYMPHOCYTES % (AUTO) 10.3 % (20.5-51.5); MEAN CORPUSCULAR HEMOGLOBIN 31.6 uug (23.8-33.4); MEAN CORPUSCULAR HGB CONC 34 g/dL (32.5-36.3); MEAN CORPUSCULAR VOLUME 92.4 fL (73.0-96.2); MONOCYTES # (AUTO) 1.2 K/uL (2.0-10.0); MONOCYTES % (AUTO) 5.7 % (0.0-11.0); NEUTROPHILS % (AUTO) 83.4 % (38.5-71.5); PLATELET COUNT (AUTO) 367 K/uL (152-348); RED BLOOD CELL COUNT(AUTO) 4.54 MIL/uL (4.06-5.63); WHITE BLOOD COUNT (AUTO) 20.4 K/uL (3.6-10.2)
[2018-08-15 06:19] LABS: BILIRUBIN,TOTAL 0.2 mg/dL (0.2-1.0); CREATININE 1.4 mg/dL (0.6-1.3); MAGNESIUM 2.3 mg/dL (1.8-2.4); PHOSPHOROUS 5.3 mg/dL (2.5-4.9); POTASSIUM 4.7 mmol/L (3.5-5.1)
[2018-08-15] MEDS: BLOOD SUGAR DIAGNOSTIC 1 EACH STRIP VI SCH ×3 (06:53→16:29)
[2018-08-15] MEDS: CULTURELLE CAPSULE PO SCH (10:28)
[2018-08-15] MEDS: methylPREDNISolone SOD SUCC 40 MG/ML VIAL IV SCH (10:28)
[2018-08-15] MEDS: LISINOPRIL 20 MG TABLET PO SCH (10:29)
[2018-08-15] MEDS: HYDROCHLOROTHIAZIDE 25 MG TABLET PO SCH (10:30)
[2018-08-15] MEDS: FLUTICASONE/VILANTEROL 1 EACH BLST.W.DEV INH SCH (10:36)
[2018-08-15] MEDS: INSULIN REGULAR, HUMAN 300 UNIT/3 ML VIAL SQ PRN ×2 (10:40→12:20)
[2018-08-15 11:39] VITALS: BP 124/68
[2018-08-15] MEDS: CEFTRIAXONE 1 G in IV DEXTROSE 5% 50 ML IV SCH (12:06)
[2018-08-15] MEDS: GUAIFENESIN/CODEINE 5 ML LIQUID UDC PO PRN (13:16)
[2018-08-15] MEDS: AZITHROMYCIN IV 500 MG in IV DEXTROSE 5% 250 ML IV SCH (13:16)
[2018-08-15] MEDS ORDERED: LEVO500T2 PO (14:04)
[2018-08-15] MEDS ORDERED: LACT1CAP57 PO (14:04)
[2018-08-15] MEDS ORDERED: METH4TAB3 PO (14:04)
[2018-08-15] MEDS ORDERED: GLIM1TAB PO (14:04)
[2018-08-15 15:04] VITALS: BP 123/67
--- NOTE | 2018-08-15 16:02 | NUR ---
DISCHARGE NOTE Patient is alert and oriented, able to verbalize needs, educated on discharge instructions. patient compliant with meds. patient educated to return to hospital or call 911 if experiences SOB again, fever or chills. patient verbalized understandings. belongings accounted for. IV line removed. patient educated on meds by Alexandria Galloway. questions and concerns addressed patient to follow up with PCP within one week. Addendum: 08/15/18 at 1605 by NAGA QURESHI RN ID band removed.
--- NOTE | 2018-08-15 16:26 | NUR ---
patient blood sugar 170mg/dl, unable to safely cover, being discharged unaware of when patient will eat meal. patient educated. stable at this time. awaiting to orange picking supervisor.
--- NOTE | 2018-08-15 16:35 | NUR ---
patient discharged in stable condition.
== END 2018-08-15 16:30 | disposition home or self-care (01) | DRG 193 ==
LOC: ER 10:52 → TELE 13:09 → MED 08-12 11:10
PROVIDERS: ADMIT Internal Medicine; ATTEND Internal Medicine
DX: J18.9 Pneumonia, unspecified organism (principal); J96.01 Acute respiratory failure with hypoxia; N17.0 Acute kidney failure with tubular necrosis; J45.901 Unspecified asthma with (acute) exacerbation; Z68.41 Body mass index [BMI] 40.0-44.9, adult; B96.89 Other specified bacterial agents as the cause of diseases classified elsewhere; Q33.9 Congenital malformation of lung, unspecified; J20.9 Acute bronchitis, unspecified; G47.33 Obstructive sleep apnea (adult) (pediatric); E66.01 Morbid (severe) obesity due to excess calories; E03.9 Hypothyroidism, unspecified; E78.5 Hyperlipidemia, unspecified; D72.829 Elevated white blood cell count, unspecified; T38.0X5A Adverse effect of glucocorticoids and synthetic analogues, initial encounter; Y92.019 Unspecified place in single-family (private) house as the place of occurrence of the external cause; E11.22 Type 2 diabetes mellitus with diabetic chronic kidney disease; I13.10 Hypertensive heart and chronic kidney disease without heart failure, with stage 1 through stage 4 chronic kidney disease, or unspecified chronic kidney disease; N18.9 Chronic kidney disease, unspecified; R74.0 Nonspecific elevation of levels of transaminase and lactic acid dehydrogenase [LDH]; Z79.51 Long term (current) use of inhaled steroids; Z71.3 Dietary counseling and surveillance; Z79.899 Other long term (current) drug therapy
CPT/HCPCS: 36415; 70030-TC; 71045; 76770; 83605; 83735; 83970; 84100; 84155; 84156; 84165; 84300; 84443; 85025; 85730; 87040; 87400; 93005; 93307; 94640; A4663; G0378; J0456; J0696; J1815; J2270; J2920; J2930; J3490; J3590; J7060

== ENCOUNTER 2019-06-16 10:18 | Inpatient (IN) | payer OTHER ==
[~2019-06-16] VITALS: Ht 188 cm; Wt 131.5 kg
[~2019-06-16 10:18] MED LIST changes: -ATOR20TA PO; +GLIM1TAB PO; +LACT1CAP57 PO; +LEVO500T2 PO; -LISI1TAB13 PO; +LISI1TAB29 PO; +METH4TAB3 PO
[2019-06-16] MEDS ORDERED: methylPREDNISolone SOD SUCC 125 MG/2 ML VIAL IV ONE (10:30)
[2019-06-16] MEDS ORDERED: IPRATROPIUM BROMIDE 0.5 MG/2.5 ML NEBU NEB ONE (10:30)
[2019-06-16] MEDS ORDERED: ALBUTEROL SULFATE 2.5 MG/3 ML NEBU NEB ONE (10:30)
[2019-06-16] MEDS ORDERED: IPRATROPIUM BROMIDE 0.5 MG/2.5 ML NEBU ONE (10:38)
[2019-06-16] MEDS ORDERED: METF-440 PO (10:38)
[2019-06-16] MEDS ORDERED: ALBUTEROL SULFATE 2.5 MG/3 ML NEBU ONE (10:38)
--- NOTE | 2019-06-16 10:50 | NUR ---
PT IS IN ROOM #2A. DR RÍOS EVALUATED THE PT.
[2019-06-16] MEDS ORDERED: methylPREDNISolone SOD SUCC 125 MG/2 ML VIAL ONE (10:56)
[2019-06-16 11:01] LABS: BASOPHILS # (AUTO) 0.1 K/uL (0.0-8.0); BASOPHILS % (AUTO) 0.6 % (0.0-2.0); EOSINOPHILS # (AUTO) 0.1 K/uL (0.0-0.7); EOSINOPHILS % (AUTO) 0.7 % (0.0-7.0); HEMATOCRIT 38.6 % (36.7-47.1); HEMOGLOBIN 12.7 g/dL (12.5-16.3); LYMPHOCYTES # (AUTO) 2.4 K/uL (20.0-40.0); MEAN CORPUSCULAR HEMOGLOBIN 30.1 uug (23.8-33.4); MEAN CORPUSCULAR HGB CONC 33 g/dL (32.5-36.3); MEAN CORPUSCULAR VOLUME 91.6 fL (73.0-96.2); MONOCYTES # (AUTO) 1.6 K/uL (2.0-10.0); MONOCYTES % (AUTO) 8.7 % (0.0-11.0); NEUTROPHILS # (AUTO) 14.3 K/uL (1.8-8.9); PLATELET COUNT (AUTO) 391 K/uL (152-348); RED BLOOD CELL COUNT(AUTO) 4.22 MIL/uL (4.06-5.63); WHITE BLOOD COUNT (AUTO) 18.6 K/uL (3.6-10.2)
[2019-06-16 11:02] LABS: CREATININE 1.2 mg/dL (0.6-1.3); POTASSIUM 3.4 mmol/L (3.5-5.1)
[2019-06-16 11:14] LABS: BILIRUBIN,DIRECT 0.2 mg/dL (0.0-0.2); BILIRUBIN,TOTAL 0.5 mg/dL (0.2-1.0)
[2019-06-16] MEDS ORDERED: CEFTRIAXONE 1 G in IV DEXTROSE 5% 50 ML IV ONE (11:30)
[2019-06-16] MEDS ORDERED: IV NORMAL SALINE 1000 ML BAG IV ONE (11:30)
[2019-06-16] MEDS ORDERED: AZITHROMYCIN IV 500 MG in IV DEXTROSE 5% 250 ML IV ONE (11:30)
[2019-06-16] MEDS ORDERED: ACETAMINOPHEN ES 500 MG TABLET PO ONE (11:30)
[2019-06-16] MEDS ORDERED: CEFTRIAXONE /D5W 50ML IVPB **ER PYXIS IV ONE (11:36)
[2019-06-16] MEDS ORDERED: ACETAMINOPHEN ES 500 MG TABLET ONE (11:36)
[2019-06-16] MEDS ORDERED: AZITHROMYCIN 500MG/ D5W 250ML IVPB **ER PYXIS ONLY IV ONE (11:37)
[2019-06-16] MEDS ORDERED: TRAMADOL HCL 50 MG TABLET PO ONE (12:30)
[2019-06-16] MEDS ORDERED: TRAMADOL HCL 50 MG TABLET ONE (12:39)
--- NOTE | 2019-06-16 13:14 | NUR ---
REPORT WAS GIVEN TO CVIR TECH. PT WAS TRANSFERED TO ROOM #315.
[2019-06-16] MEDS ORDERED: ACETAMINOPHEN 325 MG TABLET PO PRN (13:30)
[2019-06-16] MEDS: IPRATROPIUM BROMIDE 0.5 MG/2.5 ML NEBU NEB SCH ×2 (13:30→21:01)
[2019-06-16] MEDS ORDERED: ONDANSETRON 4 MG/2 ML VIAL IV PRN (13:30)
[2019-06-16] MEDS: ALBUTEROL SULFATE 2.5 MG/ 0.5 ML NEBU NEB SCH ×2 (13:30→21:01)
--- NOTE | 2019-06-16 13:35 | NUR ---
RECEIVED PATIENT FROM ER AND ADMITTED TO TELE UNIT WITH DX OF ASTHMA/COPD/ SEPSIS. TRANSPORTED VIA GURNEY WITH NO C/O PAIN NOTED AT THIS TIME. BELONGINGS ACCOUNTED AND SIGNED. KEPT CLEAN AND DRY AT ALL TIMES. WILL CONTINUE TO MONITOR.
--- NOTE | 2019-06-16 13:56 | NUR ---
CLINICAL PHARMACY NOTE:VANCOMYCIN DOSING Request for vancomycin dosing on 48 y/o male 182.88cm 131.5kg for sepsis of unknown origin Temp 100.8f BUN 12 SCr 1.2 WBC 18.6 also on Zosyn. Start vancomycin 2gm IVPB q12h estimated trough 17. Will order trough level prior to 4th dose. Will continue to monitor
[2019-06-16] MEDS ORDERED: POTASSIUM CHLORIDE 20 MEQ POWDER PACKET PO ONE (14:00)
[2019-06-16] MEDS ORDERED: DEXTROSE 50% 50 ML DISP.SYRIN IV PRN (14:00)
[2019-06-16 14:15] VITALS: BP 105/65
[2019-06-16] MEDS ORDERED: VANCOMYCIN IV 2,000 MG in IV DEXTROSE 5% 500 ML IV SCH (15:00)
[2019-06-16] MEDS: BLOOD SUGAR DIAGNOSTIC 1 EACH STRIP VI SCH ×2 (17:13→20:29)
[2019-06-16] MEDS ORDERED: PIPERACILLIN SODIUM/TAZOBACTAM 3.375 G in IV DEXTROSE 5% 50 ML IV SCH (18:00)
[2019-06-16] MEDS: METFORMIN HCL 500 MG TABLET PO SCH (18:31)
[2019-06-16] MEDS: INSULIN REGULAR, HUMAN 300 UNIT/3 ML VIAL SQ PRN ×2 (18:56→20:31)
--- NOTE | 2019-06-16 19:00 | NUR ---
PATIENT IN BED WATCHING TV WITH FRIENDS AT BEDSIDE. NO C/O PAIN AND DISCOMFORT NOTED, IV INTACT AND PATENT. KEPT CLEAN AND DRY AT ALL TIMES. SAFETY AND COMFORT PROVIDED AT ALL TIMES. CALL LIGHT WITHIN REACHED , WILL CONTINUE TO MONITOR THROUGHOUT THE SHIFT.
--- NOTE | 2019-06-16 19:30 | NUR ---
RECEIVED PT AWAKE , ALERT AND ORIENTEDX4. PT SHOWS NO SIGNS OF ACUTE DISTRESS. IV INTACT. PT ON NASAL CANNULA. FRIENDS AT BEDSIDE.SAFETY AND COMFORT PROVIDED. WILL CONTINUE TO MONITOR.
[2019-06-16 20:00] VITALS: BP 130/53
[2019-06-16] MEDS: AZITHROMYCIN 250 MG TABLET PO SCH (20:29)
[2019-06-16] MEDS: methylPREDNISolone SOD SUCC 40 MG/ML VIAL IV SCH (20:29)
[2019-06-16] MEDS: CEFEPIME HCL 1 G in IV DEXTROSE 5% 50 ML IV SCH (21:13)
[2019-06-16] MEDS: TRAMADOL HCL 50 MG TABLET PO PRN (21:31)
[2019-06-17 00:30] VITALS: BP 123/74
[2019-06-17] MEDS: ALBUTEROL SULFATE 2.5 MG/ 0.5 ML NEBU NEB SCH ×4 (01:30→21:12)
[2019-06-17] MEDS: IPRATROPIUM BROMIDE 0.5 MG/2.5 ML NEBU NEB SCH ×4 (01:30→21:12)
[2019-06-17 04:00] VITALS: BP 142/83
[2019-06-17 06:21] LABS: BASOPHILS # (AUTO) 0.1 K/uL (0.0-8.0); BASOPHILS % (AUTO) 0.3 % (0.0-2.0); HEMATOCRIT 36.6 % (36.7-47.1); LYMPHOCYTES # (AUTO) 1.1 K/uL (20.0-40.0); LYMPHOCYTES % (AUTO) 4.7 % (20.5-51.5); MEAN CORPUSCULAR HEMOGLOBIN 29.9 uug (23.8-33.4); MEAN CORPUSCULAR HGB CONC 33 g/dL (32.5-36.3); MEAN CORPUSCULAR VOLUME 91.2 fL (73.0-96.2); MONOCYTES # (AUTO) 0.8 K/uL (2.0-10.0); MONOCYTES % (AUTO) 3.5 % (0.0-11.0); NEUTROPHILS % (AUTO) 91.5 % (38.5-71.5); PLATELET COUNT (AUTO) 403 K/uL (152-348); RED BLOOD CELL COUNT(AUTO) 4.02 MIL/uL (4.06-5.63); WHITE BLOOD COUNT (AUTO) 24.1 K/uL (3.6-10.2)
[2019-06-17] MEDS: BLOOD SUGAR DIAGNOSTIC 1 EACH STRIP VI SCH ×4 (06:30→20:41)
[2019-06-17 06:37] LABS: BILIRUBIN,TOTAL 0.1 mg/dL (0.2-1.0); CREATININE 1.1 mg/dL (0.6-1.3); PHOSPHOROUS 2.7 mg/dL (2.5-4.9); TOTAL PROTEIN, SERUM 6.5 g/dL (6.4-8.2)
[2019-06-17 06:48] LABS: THYROID STIMULATING HORMONE 1.109 mIU/mL (0.358-3.740)
--- NOTE | 2019-06-17 06:53 | NUR ---
PT SLEPT INTERMITTENTLY.PT SHOWS NO SIGNS OF ACUTE DISTRESS. PT IV INTACT. SAFETY AND COMFORT PROVIDED. PRESCRIBED MEDICATION GIVEN AND PT TOLERATED IT WELL. ALL NEEDS ARE MET. WILL ENDORSE TO INCOMING NURSE FOR CONTINUITY OF CARE.
--- NOTE | 2019-06-17 07:35 | NUR ---
RECEIVED PATIENT ASLEEP AND IN BED. NO ACUTE DISTRESS NOTED. BED IN LOWEST POSITION, SIDE RAILS X2, CALL LIGHT WITHIN REACH. WILL CONTINUE TO MONITOR.
[2019-06-17 07:39] LABS: LYMPHOCYTES % (MANUAL) 6 % (20-40); MONOCYTES % (MANUAL) 5 % (2-10); NEUTROPHILS % (MANUAL) 89 % (42-75)
[2019-06-17] MEDS: PANTOPRAZOLE SODIUM 40 MG VIAL IV SCH (08:03)
[2019-06-17] MEDS: methylPREDNISolone SOD SUCC 40 MG/ML VIAL IV SCH ×2 (08:03→20:44)
[2019-06-17] MEDS: METFORMIN HCL 500 MG TABLET PO SCH ×2 (08:03→17:00)
[2019-06-17] MEDS: LISINOPRIL 20 MG TABLET PO SCH (08:05)
[2019-06-17] MEDS: CEFEPIME HCL 1 G in IV DEXTROSE 5% 50 ML IV SCH ×2 (08:05→20:44)
[2019-06-17] MEDS: HYDROCHLOROTHIAZIDE 25 MG TABLET PO SCH (08:05)
[2019-06-17] MEDS: INSULIN REGULAR, HUMAN 300 UNIT/3 ML VIAL SQ PRN ×4 (08:06→20:43)
[2019-06-17 08:21] LABS: ABG HCO3 24.5 mmol/L; ABG PCO2 39.4 mmHg (35.0-45.0); ABG PH 7.412 (7.350-7.450); ABG PO2 61.9 mmHg (75.0-100.0); ABG SITE LEFT RADIAL; ABG TOTAL HEMOGLOBIN 13.1 G/dL (13.5-18.0); COHb 1.9 % (0.5-1.5); MetHb 0.3 % (0.0-1.5); O2Hb 90.3 % (94.0-97.0); VENT MODE room air
[2019-06-17] MEDS ORDERED: LISINOPRIL PO SCH (09:00)
[2019-06-17] MEDS ORDERED: HCTZ PO SCH (09:00)
[2019-06-17] MEDS ORDERED: NORMAL SALINE NASAL 45 ML BOTTLE NS PRN (10:45)
[2019-06-17] MEDS: TRAMADOL HCL 50 MG TABLET PO PRN (11:20)
[2019-06-17] MEDS: FLUTICASONE PROP NASAL SPRAY 16 GM BOTTLE NS SCH (11:21)
[2019-06-17] MEDS ORDERED: MAG HYDROX/AL HYDROX/SIMETH 30 ML LIQUID UDC PO PRN (12:15)
[2019-06-17] MEDS ORDERED: CALCIUM CARBONATE 500 MG TAB.CHEW PO PRN (12:15)
[2019-06-17 12:16] VITALS: BP 124/71
[2019-06-17 16:13] VITALS: BP 142/78
[2019-06-17] MEDS ORDERED: MONTELUKAST SODIUM 10 MG TABLET PO SCH (18:00)
--- NOTE | 2019-06-17 18:24 | NUR ---
Patient has been stable all day, no acute distress or SOB noted. All needs met and anticipated. All due medication given and tolerated well. Pain assessment done and pain medication given PRN x1; effective. Physical assessment done. Fall risk observed. Patient can ambulate to the bathroom. Breathing treatments administered by RT; tolerated well. Bed is in the lowest position, and side rails are up x2 for safety. Will endorse to oncoming nurse.
--- NOTE | 2019-06-17 19:15 | NUR ---
RECEIVED PATIENT RESTING IN BED. AO X 4. IV FLUSHING ON LEFT HAND. COMPLAINS OF PAIN IN RIGHT WRIST . PT. ASKS FOR STRONGER PAIN MEDICATION BEFORE SLEEP. WILL NOTIFY DOCTOR. SAFETY PRECAUTIONS IN PLACE. CALL LIGHT WITHIN REACH. WILL CONTINUE TO MONITOR
[2019-06-17 19:56] VITALS: BP 124/77
--- NOTE | 2019-06-17 20:15 | NUR ---
Patient requesting stronger pain medication. Dr. Apple contacted and ordered Morphine IV 1 mg once. Also, Dr. Apple ordered continuous pulse oximetry for patient during sleep.
[2019-06-17] MEDS: AZITHROMYCIN 250 MG TABLET PO SCH (20:44)
[2019-06-17] MEDS ORDERED: CETIRIZINE HCL 10 MG TABLET PO SCH (21:00)
[2019-06-17] MEDS: MAG HYDROX/AL HYDROX/SIMETH 30 ML LIQUID UDC PO PRN (21:53)
[2019-06-17] MEDS: MORPHINE SULFATE 2 MG/1 ML DISP.SYRIN IV ONE ×2 (21:54→22:37)
[2019-06-18] MEDS: ALBUTEROL SULFATE 2.5 MG/ 0.5 ML NEBU NEB SCH ×3 (01:30→13:35)
[2019-06-18] MEDS: IPRATROPIUM BROMIDE 0.5 MG/2.5 ML NEBU NEB SCH ×3 (01:30→13:35)
[2019-06-18 04:00] VITALS: BP 134/65
--- NOTE | 2019-06-18 04:13 | NUR ---
PT HAS HIS OWN CPAP MACHINE WITH NASAL PILLOWS, , PT HAS A ORDER FOR CONT PULSE OXY, PT ON ROOM AIR, SAT 91-94%, DOING WELL ON HIS CPAP MACHINE, NO SIGNS OF RESP. DISTRESS. [place] Addendum: 06/18/19 at 0415 by PRANAY WINTER RT Amended: Links added.
[2019-06-18] MEDS: BLOOD SUGAR DIAGNOSTIC 1 EACH STRIP VI SCH ×2 (06:36→11:56)
--- NOTE | 2019-06-18 06:45 | NUR ---
Patient slept throughout the night with CPAP machine in tact. Continuous pulse oximeter attached to patient. Saturating at 92%. Sinus tachy on the tele monitor. No acute change in patient condition throughout shift. Will endorse care to oncoming nurse.
--- NOTE | 2019-06-18 07:10 | NUR ---
Received patient resting in bed, asleep with cpap on. No acute distress noted. bed in lowest position, side rails up x2, call light within reach. will continue to monitor.
[2019-06-18 08:04] LABS: MAGNESIUM 2.2 mg/dL (1.8-2.4); PHOSPHOROUS 4.5 mg/dL (2.5-4.9); POTASSIUM 4.3 mmol/L (3.5-5.1)
[2019-06-18 08:09] LABS: BASOPHILS # (AUTO) 0.1 K/uL (0.0-8.0); BASOPHILS % (AUTO) 0.2 % (0.0-2.0); HEMATOCRIT 37.6 % (36.7-47.1); HEMOGLOBIN 11.9 g/dL (12.5-16.3); LYMPHOCYTES # (AUTO) 1.4 K/uL (20.0-40.0); LYMPHOCYTES % (AUTO) 5.5 % (20.5-51.5); MEAN CORPUSCULAR HEMOGLOBIN 29.5 uug (23.8-33.4); MEAN CORPUSCULAR HGB CONC 32 g/dL (32.5-36.3); MEAN CORPUSCULAR VOLUME 93.8 fL (73.0-96.2); MONOCYTES # (AUTO) 0.8 K/uL (2.0-10.0); MONOCYTES % (AUTO) 3.1 % (0.0-11.0); NEUTROPHILS # (AUTO) 23.6 K/uL (1.8-8.9); NEUTROPHILS % (AUTO) 91.2 % (38.5-71.5); PLATELET COUNT (AUTO) 399 K/uL (152-348); RED BLOOD CELL COUNT(AUTO) 4.01 MIL/uL (4.06-5.63); WHITE BLOOD COUNT (AUTO) 25.8 K/uL (3.6-10.2)
[2019-06-18] MEDS: CEFEPIME HCL 1 G in IV DEXTROSE 5% 50 ML IV SCH (08:49)
[2019-06-18] MEDS: FLUTICASONE PROP NASAL SPRAY 16 GM BOTTLE NS SCH (08:49)
[2019-06-18] MEDS: methylPREDNISolone SOD SUCC 40 MG/ML VIAL IV SCH (08:49)
[2019-06-18] MEDS: METFORMIN HCL 500 MG TABLET PO SCH (08:49)
[2019-06-18] MEDS: PANTOPRAZOLE SODIUM 40 MG VIAL IV SCH (08:49)
[2019-06-18] MEDS: HYDROCHLOROTHIAZIDE 25 MG TABLET PO SCH (08:50)
[2019-06-18] MEDS: LISINOPRIL 20 MG TABLET PO SCH (08:50)
[2019-06-18] MEDS: MAG HYDROX/AL HYDROX/SIMETH 30 ML LIQUID UDC PO PRN (10:56)
[2019-06-18 12:04] VITALS: BP 126/73
[2019-06-18] MEDS: INSULIN REGULAR, HUMAN 300 UNIT/3 ML VIAL SQ PRN (12:22)
[2019-06-18] MEDS ORDERED: METH4TAB3 PO (14:33)
[2019-06-18] MEDS ORDERED: FLUT16SP NS (14:33)
[2019-06-18] MEDS ORDERED: AZIT250T13 PO (14:33)
[2019-06-18] MEDS ORDERED: CETI10TA14 PO (14:33)
[2019-06-18] MEDS ORDERED: TRAM50TA2 PO (14:33)
[2019-06-18 15:09] VITALS: BP 108/61
--- NOTE | 2019-06-18 15:20 | NUR ---
D/C PATIENT. REVIEWED D/C INSTRUCTIONS WITH PATIENT, PATIENT VERBALLY UNDERSTANDS INSTRUCTIONS AND PRESCRIPTION GIVEN TO PATIENT. REMOVED PATIENTS IV AND ID BAND. PATIENT ESCORTED DOWN STAIR WITH PATIENT SON W/O COMPLICATIONS.
[2019-06-18] MEDS ORDERED: methylPREDNISolone SOD SUCC 40 MG/ML VIAL IV SCH (21:00)
[2019-06-19] MEDS ORDERED: PANTOPRAZOLE SODIUM 40 MG TABLET.DR PO SCH (07:00)
== END 2019-06-18 15:25 | disposition home or self-care (01) | DRG 871 ==
LOC: ER 10:18 → TELE3 13:12 → MEDSURG3 06-18 11:30
PROVIDERS: ADMIT Registered Nurse; ATTEND Registered Nurse
DX: A41.9 Sepsis, unspecified organism (principal); J96.01 Acute respiratory failure with hypoxia; J69.0 Pneumonitis due to inhalation of food and vomit; J45.901 Unspecified asthma with (acute) exacerbation; G47.33 Obstructive sleep apnea (adult) (pediatric); E66.01 Morbid (severe) obesity due to excess calories; Z68.37 Body mass index [BMI] 37.0-37.9, adult; K21.9 Gastro-esophageal reflux disease without esophagitis; E03.9 Hypothyroidism, unspecified; I49.3 Ventricular premature depolarization; R13.10 Dysphagia, unspecified; I10 Essential (primary) hypertension; F32.9 Major depressive disorder, single episode, unspecified; F41.9 Anxiety disorder, unspecified; S62.111D Displaced fracture of triquetrum [cuneiform] bone, right wrist, subsequent encounter for fracture with routine healing; W19.XXXD Unspecified fall, subsequent encounter; E78.5 Hyperlipidemia, unspecified; E11.9 Type 2 diabetes mellitus without complications; J31.0 Chronic rhinitis; Z79.51 Long term (current) use of inhaled steroids; Z87.01 Personal history of pneumonia (recurrent); Z83.3 Family history of diabetes mellitus; Z91.19 Patient's noncompliance with other medical treatment and regimen; Z82.49 Family history of ischemic heart disease and other diseases of the circulatory system; J32.9 Chronic sinusitis, unspecified; E87.6 Hypokalemia; J20.9 Acute bronchitis, unspecified
CPT/HCPCS: 36415; 36600; 70030-TC; 70220; 70450; 71045; 73200; 83605; 83735; 84100; 84443; 85025; 87040; 87400; 93005; 93307; 93880; 94640; 94664; A4663; A9150; C9113; G0378; J0456; J0692; J0696; J1815; J2270; J2543; J2920; J2930; J3370; J3535; J3590; J7030; J7050; J7060; Q0144